=== PATIENT | male | born 1945 | race Caucasian/White ===

== ENCOUNTER 2019-02-28 13:48 | Emergency (ER) | payer MEDICARE ==
[~2019-02-28] VITALS: Ht 177.8 cm; Wt 90.0 kg
[2019-02-28 13:50] VITALS: Ht 177.8 cm; Wt 90.0 kg
== END 2019-02-28 16:21 | disposition home or self-care (01) ==
LOC: E/R 13:48
DX: T85.9XXA Unspecified complication of internal prosthetic device, implant and graft, initial encounter (principal); Y82.9 Unspecified medical devices associated with adverse incidents
CPT/HCPCS: 99284